=== PATIENT | female | born 1960 | race Asian ===

== ENCOUNTER 2016-10-07 08:13 | Day surgery (SDC) | payer OTHER ==
[2016-10-06 12:39] VITALS: BMI 21.4
--- NOTE | 2016-10-07 10:31 | HP ---
Past Medical History - Primary Care Physician PCP:: Lory Rodrigez - Admission Chief Complaint: 56 yrs , LMP 2005, is diagnozed HGSIL on ECC is admitted for cone biopsy. History of Present Illness: Pap ASCUS, possible hgsil lesion suspecred done at [facility] Cr. 12/05/2015 Colposcopy : Cx bx neg for Dysplasia, ECC neg for Dysplasia by Dr Collazo at , [facility] [place] CR. 06/30/2016 Repeat Pap ASCUS, NON 16/18 HR HPV POS 09/01/2016 colposcopy : satisfactory . 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 No: Endometriosis, Fibroids, Polycystic Ovary Syndrome ...: 5 ...Para: 5 (5 , LD 11/1995) Infectious Disease: No: HIV, STD's Psych: Yes: Anxiety. No: Addictions, Depression, Panic Endocrine: No: Diabetes Mellitus, Hyperthyroidism, Hypothyroidism - Past Surgical History Past Surgical History: Yes: None Hx Myomectomy: No Hx Transabdominal Cerclage: No - Smoking History Smoking history: Never smoked Have you smoked in the past 12 months: No - Alcohol/Substance Use Hx Alcohol Use: Yes (RARELY) History of Substance Use: reports: None Home Medications - Allergies Allergies/Adverse Reactions: Allergies Allergy/AdvReac Type Severity Reaction Status Date / Time No Known Allergies Allergy Verified 10/07/16 09:29 - Home Medications Home Medications: Ambulatory Orders Hydrochlorothiazide [Hctz -] 12.5 mg PO HS 10/06/16 Lisinopril 5 mg PO HS 10/06/16 Simvastatin [Zocor -] 10 mg PO HS 10/06/16 Physical Exam-FOOD SERVER Vital Signs: Vital Signs Temperature 98.1 F 10/07/16 09:32 Pulse Rate 53 L 10/07/16 09:32 Respiratory Rate 18 10/07/16 09:32 Blood Pressure 103/65 10/07/16 09:32 O2 Sat by Pulse Oximetry (%) 100 10/07/16 09:32 Constitutional: Yes: Well Nourished Eyes: Yes: WNL HENT: Yes: WNL Neck: Yes: WNL Cardiovascular: Yes: WNL Respiratory: Yes: WNL Gastrointestinal: Yes: WNL, Normal Bowel Sounds, Soft ...Rectal Exam: Yes: WNL Renal/: Yes: WNL Pelvis: Yes: WNL External Genitalia: Yes: Normal Vaginal Exam: Yes: Normal. No: Bleeding, Condyloma, Discharge Cervix: Yes: Normal. No: Bleeding, Cerv Motion Tenderness, Condyloma, Polyp Uterus: Yes: Normal, Freely Moveable, Anteverted Adnexa: Normal: Bilateral, Not Palpable: Bilateral Breast(s): Yes: WNL Musculoskeletal: Yes: WNL Extremities: Yes: WNL. No: Calf Tenderness Edema: No Integumentary: Yes: WNL Neurological: Yes: WNL ...Motor Strength: WNL Psychiatric: Yes: WNL Labs: 09/24/16 PT 10.3 INR 0.95 PTT 23.1 TSH 0.476 HgbA1C 6.0 AB Pos UA neg BHCG neg CBC wbc 6.94, h/h 14,0/42.2, plt 214 CMP Na 138, K3.7, Cl 98, CO2 22, BNN 11, Cr 0.5, Glucose 94, AST 21 , ALT 23 Imaging - Results Chest X-ray: Report Reviewed (09/24/16 LUNGS CLEAR) Problem List - Problem (1) HGSIL (high grade squamous intraepithelial dysplasia) Code(s): ACG2701 - (2) HPV (human papilloma virus) anogenital infection Code(s): A63.0 - ANOGENITAL (VENEREAL) WARTS Assessment/Plan 56 yrs ,post menopausal ( 2005) HGSIL on ECc, hr non 16/18 HPV pos . plan Cone Biopsy cervix
[2016-10-07] MEDS ORDERED: PROPOFOL 20 ML ONE ×2 (11:04)
[2016-10-07] MEDS ORDERED: SUCCINYLCHOLINE CHLORIDE 200 MG/10 ML VIAL ONE (11:05)
[2016-10-07] MEDS ORDERED: IODINE/POTASSIUM IODIDE 5%/10% 14 ML BOTTLE NR ONE (11:24)
[2016-10-07] MEDS ORDERED: DEXAMETHASONE SOD PHOSPHATE 4 MG/1 ML VIAL ONE (11:37)
[2016-10-07] MEDS ORDERED: LIDOCAINE HCL/PF 2% SDV 5ML VIAL ONE (11:39)
[2016-10-07] MEDS ORDERED: metroNIDAZOLE 0.75% VAGINAL GEL 70 GM TUBE ONE (11:42)
[2016-10-07] MEDS ORDERED: metroNIDAZOLE 0.75% VAGINAL GEL 70 GM TUBE VG ONE (11:45)
[2016-10-07] MEDS ORDERED: oxyCODONE HCL 5 MG TABLET PO PRN (12:12)
--- NOTE | 2016-10-07 12:14 | OP ---
Operative Note - Note: Operative Date: 10/07/16 Pre-Operative Diagnosis: HGSIL cervix, Non 16/18 HR HPV pos , post menopausal Operation: cold knife cone biopsy cervix Findings: ut av ns, ca post, adnexa arnp utero cervical length 7cm.. after taking hemostatic stay sutures at 3, 9 12 & 6o'clock position cone of cx dissected ecc done hemostasis achieved with cautery . metrogel gel inserted iodoform gauze packed in vagina to be removed in PACU Surgeon: Lory Rodrigez Anesthesiologist/SPECIAL EQUIPMENT TECHNICIAN: Evelina Rocha Anesthesia: General Specimens Removed: cone bx cx. ecc Estimated Blood Loss (mls): 10 Drains, Volume Out (mls): 350 (st cath post op ) Operative Report Dictated: Yes
[2016-10-07] MEDS ORDERED: LACTATED RINGERS SOLUTION 1,000 ML IV SCH (12:15)
[2016-10-07] MEDS ORDERED: ONDANSETRON 4 MG/2 ML VIAL IVPB PRN (12:21)
[2016-10-07] MEDS ORDERED: ACETAMINOPHEN 325 MG TABLET (FP) PO PRN (12:21)
[2016-10-07] MEDS ORDERED: IBUPROFEN 400 MG TABLET (FP) PO PRN (12:21)
[2016-10-07 15:44] VITALS: BP 98/56; PULSE 57; TEMP 98.1
--- NOTE | 2016-10-08 12:09 | OP ---
DATE OF OPERATION: 10/07/2016 PREOPERATIVE DIAGNOSIS: High-grade squamous intraepithelial lesion of the cervix and 9, 16 and 18 human papilloma virus positive, postmenopausal. PROCEDURE PERFORMED: Cold knife cold biopsy of the cervix. SURGEON: Lory Rodrigez MD ANESTHESIOLOGIST: Evelina Rocha MD ANESTHESIA: General. INDICATIONS: The patient is a 56-year-old 5, para 5-0-0-5, and her last delivery was in 1995. She is postmenopausal. Her last period was in 2005. Pap smear was ASCUS in June 2016 and non 16, 18 high risk HPV was positive. Colposcopy biopsy was negative for dysplasia but ECC was positive for high- grade BRITTANY. DESCRIPTION OF PROCEDURE: The patient was taken to the operating room table. General anesthesia was given. She was placed in the lithotomy position. The pubis, perineum and vagina were painted with Betadine and draped in the usual manner. A pelvic examination was done. Uterus was anteverted, of normal size. The cervix was posterior. Adnexa were not palpable. A weighted speculum was put in. The cervix was held laterally at 3 o'clock, and stay suture was taken outside into the cervical tissue at 3 o'clock. It was hemostatic. A stay suture of Vicryl suture similarly at 9 o'clock. Hemostatic stay suture was taken with 0 Vicryl. Then at 12 o'clock and 6 o'clock, the stay sutures were taken. Then with a number 11 blade, in a cone shape, the cervix was dissected. Before that it was guided by keeping a dilator in the endocervical canal. The cone was marked at 12 o'clock with a suture and sent for pathological examination. ECC was done. Hemostasis also achieved with coagulation cautery. Then another hemostatic suture was taken at 12 o'clock with 0 Vicryl suture. MetroGel was inserted to ensure complete hemostasis. Vaginal packing with 1-inch Iodoform gauze was placed, which will be removed in the PACU. The patient tolerated the procedure well. Estimated blood loss was 10 mL or less. The bladder was catheterized postoperatively and 350 mL of urine was drained. The patient was transferred to the recovery room in stable condition. Luke [id number] MTDD
--- NOTE | 2016-10-14 11:19 | PATH ---
Surgical Pathology Report Patient Name: SAMUEL GLORIA [facility]. Rec. #: [id number] /Age/Gender: 1960 (Age: 56) / F Account: [id number] Location: [facility] SURGICAL Taken: 10/07/2016 Received: 10/08/2016 Reported: 10/09/2016 Physicians: Lory Rdorigez M.D. Specimen(s) Received A: CERVICAL CONE B: ENDOCERVICAL CURETTINGS Clinical History HGSIL cervix Pap ASCUS; colpo bx- negative for dysplasia, ECC-HGSIL (JOAN 2 & JOAN 3) Previous Paps: ASCUS (HPV HR Non 10/18) pos Final Diagnosis A. CERVIX, COLD KNIFE CONE BIOPSY: CERVICAL SQUAMOUS AND ENDOCERVICAL MUCOSA WITH HIGH GRADE SQUAMOUS INTRAEPITHELIAL LESION (CERVICAL INTRAEPITHELIAL NEOPLASIA 2-3/JOAN 2-3) WITH FOCAL GLANDULAR INVOLVEMENT, FOCALLY DETACHED, PRESENT IN ALL FOUR QUADRANTS. SURGICAL RESECTION MARGINS: APPEAR NEGATIVE FOR DYSPLASIA (EVALUATION IS LIMITED IN THE AREAS WITH DETACHED DYSPLASTIC EPITHELIUM). TRANSFORMATION ZONE: PRESENT. B. ENDOCERVIX, CURETTAGE: SCANT FRAGMENTS OF BENIGN ENDOCERVICAL TISSUE. Electronically Signed Gurpreet Scott M.D. Gross Description A. Received in formalin labeled "cervical cone" is a 2 cm in diameter x 1.6 cm in depth cervical cone biopsy. There is a suture present marking the 12:00 aspect of the specimen, per the surgeon. The specimen is inked green and serially sectioned. The specimen is entirely and sequentially submitted in 4 cassettes as follows: 1-12:00 to 3:00; 2-3:00 to 6:00; 3-6:00 to 9:00; 4-9:00 to 12:00. B. Received in formalin labeled "endocervical curettings" is a 0.6 x 0.5 x 0.1 cm aggregate of duckworth-brown blood, possibly containing soft tissue fragments. The formalin is filtered and the specimen is entirely submitted in one cassette. 10/08/201610/08/2016
== END 2016-10-07 15:00 | disposition home or self-care (01) ==
LOC: JASU-SURG 08:13
PROVIDERS: ATTEND Obstetrics & Gynecology
PROC: 0UBC7ZX Excision of Cervix, Via Natural or Artificial Opening, Diagnostic (ICD-10-PCS; principal; 2016-10-07 11:00)
DX: R87.613 High grade squamous intraepithelial lesion on cytologic smear of cervix (HGSIL) (principal); R87.810 Cervical high risk human papillomavirus (HPV) DNA test positive
CPT/HCPCS: 86850; 86900; 86901; 88305-TC; 88307-TC; 94760